=== PATIENT | male | born 1960 | race Caucasian/White ===

== ENCOUNTER 2018-02-27 07:43 | Day surgery (SDC) | payer BC, OTHER ==
[2018-02-27] VITALS (8 sets, daily range): BP systolic 95–157; BP diastolic 71–95; PULSE 57–96; TEMP 98.3
[~2018-02-27] VITALS: Ht 188 cm; Wt 109.0 kg
[2018-02-27 08:35] LABS: PROTHROMBIN TIME 11.1 SECONDS (9.7-12.8)
[2018-02-27 08:38] LABS: POTASSIUM 5.2 mmol/L (3.4-5.0)
[2018-02-27] MEDS ORDERED: ELIQUIS 5MG PO (09:10)
[2018-02-27] MEDS ORDERED: ZOCOR 40MG40 MG PO (09:11)
[2018-02-27] MEDS ORDERED: BETAPACE 80MG80 MG PO ×2 (09:11→09:51)
[2018-02-27] MEDS ORDERED: ZESTRIL 10MG10 MG PO (09:11)
[2018-02-27] MEDS ORDERED: ASPIRIN 81M81 MG/TA2 PO (09:12)
[2018-02-27] MEDS ORDERED: PRILOSEC 20MG20 MG PO (09:12)
[2018-02-27 09:13] LABS: THYROID STIMULATING HORMONE 2.97 uIU/mL (0.465-4.680)
[2018-02-27] MEDS ORDERED: CLARITIN 1010 MG/TAB PO (09:13)
[2018-02-27] MEDS ORDERED: VITAMIN B COMPL1 SGL PO (09:13)
[2018-02-27] MEDS ORDERED: NATURAL MAGNES200 MG PO (09:14)
== END 2018-02-27 11:45 | disposition home or self-care (01) ==
LOC: COL.CAR 07:43
PROVIDERS: Internal Medicine Cardiovascular Disease
DX: I48.0 Paroxysmal atrial fibrillation (principal); I51.7 Cardiomegaly; Z79.82 Long term (current) use of aspirin; I10 Essential (primary) hypertension; E78.5 Hyperlipidemia, unspecified
CPT/HCPCS: J2250; J3010; J7030